=== PATIENT | female | born 1990 | race Caucasian/White ===

== ENCOUNTER 2016-08-07 10:31 | Emergency (ER) | payer OTHER ==
[~2016-08-07] VITALS: Ht 167.6 cm; Wt 97.7 kg
[2016-08-07] MEDS ORDERED: FLONASE NASAL50 MCG (11:34)
[2016-08-07] MEDS ORDERED: CLARITIN10 M1 PO (11:34)
[2016-08-07] MEDS ORDERED: CEPHALEXIN500 MG PO (11:34)
[2016-08-07 11:37] VITALS: BP 115/82
== END 2016-08-07 11:49 | disposition home or self-care (01) | DRG 153 ==
LOC: ED 10:31
DX: J01.90 Acute sinusitis, unspecified (principal); R09.81 Nasal congestion; R51 Headache